=== PATIENT | male | born 1995 ===

== ENCOUNTER 2017-01-26 20:59 | Emergency (ER) | payer SELFPAY ==
[~2017-01-26] VITALS: Ht 167.6 cm; Wt 57.3 kg
[2017-01-26 21:09] VITALS: TEMP 36.6; Ht 167.6 cm; Wt 57.3 kg
[2017-01-26] MEDS ORDERED: SODIUM CHLORIDE 0.9% 1000ML 1,000 ML IV STA (21:24)
--- NOTE | 2017-01-26 21:25 | EMERGENCY ROOM VISIT NOTE ---
History Report prepared by Milo: Maynor Huitron Under the Supervision of: Dr. Jay Panda M.D. First contact with patient: 21:08 Chief Complaint: SYNCOPE (NEAR SYNCOPE) Stated Complaint: SYNCOPE Nursing Triage Summary: refer to triage note History of Present Illness The patient is a 21 year old [place] male with no past medical history who presents to the ED with a cc of a sudden syncopal episode occurring around 2030 tonight. Positive hearing and vision loss that happened during the episode, headache, and a sore throat. Negative nausea, vomiting, congestion, cough, recent travel, alcohol tobacco, or drug use. He states that he was in a hot area when this occurred. Source of History: patient Onset: 2029 Position: other (global) Quality: other (syncope) Timing: other (sudden) Associated Symptoms: + headache, + sorethroat, No nausea, No vomiting Review of Systems See HPI for pertinent positives and negatives. A total of ten systems were reviewed and were otherwise negative. Family History Patient reports no known family medical history. Social History Smoking Status: Never Smoker Marital Status: single Housing Status: lives with roommate Occupation Status: employed, [employer] student Current/Historical Medications No Active Prescriptions or Reported Meds Allergies Coded Allergies: No Known Allergies (Unverified , 01/26/17) Physical Exam Vital Signs Date Time Temp Pulse Resp B/P (MAP) Pulse Ox O2 Delivery O2 Flow Rate FiO2 01/26/17 21:11 84 01/26/17 21:09 36.6 66 18 133/82 98 Room Air Physical Exam GENERAL: Awake, alert, mildly anxious appearing, NAD HENT: Normocephalic, atraumatic. EYES: Normal conjunctiva. Sclera non-icteric. NECK: Supple. No nuchal rigidity. FROM. RESPIRATORY: CTAB, no rhonchi, wheezing, crackles CARDIAC: RRR, no MRG ABDOMEN: Soft, NTND, BS+ MSK: No chest wall TTP, no LE edema NEURO: GCS 15, CN 2-12 intact, moves all 4s on command SKIN: No rash or jaundice noted. Medical Decision & Procedures ER Provider Diagnostic Interpretation: Radiology results as stated below per my review and radiologist interpretation: SINGLE VIEW CHEST CLINICAL HISTORY: Near syncope. FINDINGS: An AP, portable, upright chest radiograph is obtained. No prior studies are available for comparison at the time of dictation. The examination is degraded by portable technique and patient rotation. The cardiomediastinal silhouette is unremarkable. The lungs and pleural spaces are clear. No pneumothorax is seen. The bony thorax is grossly intact. Mild thoracic scoliosis is noted. IMPRESSION: No active disease in the chest. Electronically signed by: Xavier Chow M.D. 01/26/2017 10:12 PM Dictated Date/Time: 01/26/2017 10:12 PM Laboratory Results 01/26/17 21:40 Red Blood Count 4.74, Mean Corpuscular Volume 87.6, Mean Corpuscular Hemoglobin 31.4, Mean Corpuscular Hemoglobin Concent 35.9, Mean Platelet Volume 9.2, Neutrophils (%) (Auto) 73.5, Lymphocytes (%) (Auto) 18.0, Monocytes (%) (Auto) 7.8, Eosinophils (%) (Auto) 0.5, Basophils (%) (Auto) 0.1, Neutrophils # (Auto) 5.59, Lymphocytes # (Auto) 1.37, Monocytes # (Auto) 0.59, Eosinophils # (Auto) 0.04, Basophils # (Auto) 0.01 Test 01/26/17 21:40 01/26/17 21:48 White Blood Count 7.61 K/uL (4.8-10.8) Red Blood Count 4.74 M/uL (4.7-6.1) Hemoglobin 14.9 g/dL (14.0-18.0) Hematocrit 41.5 % (42-52) Mean Corpuscular Volume 87.6 fL (80-100) Mean Corpuscular Hemoglobin 31.4 pg (25-34) Mean Corpuscular Hemoglobin Concent 35.9 g/dl (32-36) Platelet Count 154 K/uL (130-400) Mean Platelet Volume 9.2 fL (7.4-10.4) Neutrophils (%) (Auto) 73.5 % Lymphocytes (%) (Auto) 18.0 % Monocytes (%) (Auto) 7.8 % Eosinophils (%) (Auto) 0.5 % Basophils (%) (Auto) 0.1 % Neutrophils # (Auto) 5.59 K/uL (1.4-6.5) Lymphocytes # (Auto) 1.37 K/uL (1.2-3.4) Monocytes # (Auto) 0.59 K/uL (0.11-0.59) Eosinophils # (Auto) 0.04 K/uL (0-0.5) Basophils # (Auto) 0.01 K/uL (0-0.2) RDW Standard Deviation 37.7 fL (36.4-46.3) RDW Coefficient of Variation 11.7 % (11.5-14.5) Immature Granulocyte % (Auto) 0.1 % Immature Granulocyte # (Auto) 0.01 K/uL (0.00-0.02) Magnesium Level 2.1 mg/dl (1.8-2.4) Bedside Hemoglobin 14.6 g/dl (14.0-18.0) Bedside Hematocrit 43 % (42-52) Bedside Sodium 140 mEq/L (135-144) Bedside Potassium 3.7 mEq/L (3.3-5.0) Bedside Chloride 104 mEq/L (101-112) Bedside Total CO2 24 mEq/l (24-31) Anion Gap 18.0 mmol/L (16-25) Bedside Blood Urea Nitrogen 12 mg/dl (7-18) Bedside Creatinine 1.0 mg/dl Bedside Glucose (other) 101 mg/dl (70-99) Bedside Ionized Calcium (Dustin) 1.17 mmol/l Laboratory results reviewed by me Medications Administered Medications (Trade) Dose Ordered Sig/Thomas Route Start Time Stop Time Status Last Admin Dose Admin Sodium Chloride 1,000 ml @ 999 mls/hr Q1H1M STAT IV 01/26/17 21:24 01/26/17 22:24 01/26/17 21:50 999 MLS/HR ECG Indication: syncope Rate (beats per minute): 78 Rhythm: normal sinus Findings: other (Normal interval, Right axis deviation, no STS changes or TWI. Lead V2 concerning for possible Type 2 Brugada) ED Course 2107: The patient was evaluated in room C9. A complete history and physical exam was performed. 2200: I discussed the patient's EKG with Dr. Garrison, Cardiology, and he states that given the patient's condition he would like to see him as a follow up and is okay to be discharged home. 3: I reevaluated the patient. Discussed results and discharge instructions: He verbalized understanding and agreement. The patient is ready for discharge. Medical Decision The patient is a 21 year old [place] male with no past medical history who presents to the ED with a cc of a sudden syncopal episode occurring around 2030 tonight. Positive hearing and vision loss that happened during the episode, headache, and a sore throat. Negative nausea, vomiting, congestion, cough, recent travel, alcohol tobacco, or drug use. Triage Nursing notes reviewed. The patient's presentation and history were concerning for situational syncope, arrhythmia, electrolyte abnormality, and hypoglycemia. Patient was seen and evaluated at the bedside. Patient's near syncope sounds are situational given the heat as well as the resolution of the symptoms when he laid supine. Patient has no family history does not have repeat episodes of this in the past. Patient's labwork is fairly unremarkable. No abnormalities. Patient's EKG showed questionable Brugada-type 2 pattern[address] I spoke with [address] Ham who agreed that this may be a variant. He stated that they would like to see him in clinic but he does require an immediate work up at this time. Patient's symptoms has result had resolved. Patient feels well patient and related without difficulty and was no longer lightheaded or dizzy. Patient tolerated by mouth. Patient was scheduled follow-up, discharge, return precautions. Patient was told follow-up in cardiology clinic. Patient agreed with plan of care was discharged home. Medication Reconcilliation Current Medication List: was personally reviewed by me Blood Pressure Screening Patient's blood pressure: Normal blood pressure Consults Time Called: 2158 Consulting Physician: Dr. Garrison, Cardiology Returned Call: 2200 I discussed the patient's EKG with Dr. Garrison, Cardiology, and he states that given the patient's condition he would like to see him as a follow up and is okay to be discharged home. Impression Primary Impression: Near syncope Scribe Attestation The scribe's documentation has been prepared under my direction and personally reviewed by me in its entirety. I confirm that the note above accurately reflects all work, treatment, procedures, and medical decision making performed by me. Departure Information Dispostion Home / Self-Care Prescriptions No Active Prescriptions or Reported Meds Referrals No Doctor, Assigned (PCP) Anibal Garrison MD Forms HOME CARE DOCUMENTATION FORM, IMPORTANT VISIT INFORMATION Patient Instructions ED Near Syncope Unkn, ED Near Syncope Vasovagal, My [facility] Additional Instructions Please return to the emergency department if you have worsening or recurrent symptoms not amenable to at-home treatment. Please call for a follow-up appointment with her primary care physician. Please take your medications as prescribed. If you have other concerns and/or complaints please feel free to also call your primary care physician's office or return the ED for further evaluation, management, and treatment. Please feel well-hydrated and avoid anything that makes urinate including caffeinated as well as alcoholic beverages. Please be sure to call Dr. Garrison' s office for follow-up appointment. If you have any worsening or recurrent symptoms please return to the emergency department for further evaluation.
[2017-01-26 21:53] LABS: BASO % 0.1 %; BASO ABS # 0.01 K/uL (0-0.2); COMPLETE YES; EOS % 0.5 %; HEMATOCRIT 41.5 % (42-52); IG% 0.1 %; LYMPH ABS # 1.37 K/uL (1.2-3.4); MEAN CELL VOLUME 87.6 fL (80-100); MEAN CORPUSCULAR HEMOGLOBIN 31.4 pg (25-34); MEAN CORPUSCULAR HGB CONC 35.9 g/dl (32-36); MEAN PLATELET VOLUME 9.2 fL (7.4-10.4); MONO % 7.8 %; NEUT % 73.5 %; PLATELET COUNT 154 K/uL (130-400); RED BLOOD COUNT 4.74 M/uL (4.7-6.1); WHITE BLOOD COUNT 7.61 K/uL (4.8-10.8)
[2017-01-26 21:59] LABS: ISTAT HEMOGLOBIN 14.6 g/dl (14.0-18.0); ISTAT IONIZED CALCIUM 1.17 mmol/l
--- NOTE | 2017-01-26 22:14 | DIAGNOSTIC IMAGING REPORT ---
SINGLE VIEW CHEST CLINICAL HISTORY: Near syncope. FINDINGS: An AP, portable, upright chest radiograph is obtained. No prior studies are available for comparison at the time of dictation. The examination is degraded by portable technique and patient rotation. The cardiomediastinal silhouette is unremarkable. The lungs and pleural spaces are clear. No pneumothorax is seen. The bony thorax is grossly intact. Mild thoracic scoliosis is noted. IMPRESSION: No active disease in the chest. Electronically signed by: Xavier Chow M.D. 01/26/2017 10:12 PM Dictated Date/Time: 01/26/2017 10:12 PM
[2017-01-26 22:33] VITALS: BP 124/78; PULSE 70; O2SAT 98
== END 2017-01-26 22:34 | disposition home or self-care (01) ==
LOC: EDBD 20:59 → C.EDC 21:00
DX: R55 Syncope and collapse (principal); R51 Headache; J02.9 Acute pharyngitis, unspecified